=== PATIENT | female | born 1970 | race Caucasian/White ===

== ENCOUNTER 2024-07-24 06:26 | Emergency (ER) | payer OTHER ==
[~2024-07-24] VITALS: Ht 160 cm; Wt 85.0 kg
[2024-07-24 07:26] LABS: HEMATOCRIT. 37.4 % (36.0-48.0); HEMOGLOBIN. 12.8 g/dL (12.0-16.0); MEAN CORPUSCULAR HEMOGLOBIN 30.1 pg (28.0-32.0); MEAN CORPUSCULAR HGB CONC 34.1 g/dL (31.0-37.0); MEAN CORPUSCULAR VOLUME 88.1 fL (81.0-99.0); PLATELET 303 x1000/uL (130-400); RED BLOOD CELL COUNT 4.25 mill/uL (4.2-5.4); RED CELL DISTRIBUTION WIDTH 13.3 % (11.6-14.6); WHITE BLOOD COUNT 4.1 x1000/uL (4.5-11.0)
[2024-07-24 07:28] LABS: DIFFERENTIAL COMMENT 1
[2024-07-24] MEDS: DEXAMETHASONE 1MG TABLET PO ONE (07:45)
[2024-07-24 08:00] VITALS: PULSE 79; RESP 18; O2SAT 94
[2024-07-24] MEDS: ALBUTEROL (0.083%) 2.5MG/3ML NEB HHN SCH (08:00)
[2024-07-24] MEDS ORDERED: DEXAMETHASONE 4MG TABLET PO ONE (08:00)
[2024-07-24] MEDS: IPRATROPIUM BROMIDE (0.02%) 0.5MG/2.5ML NEB HHN STA (08:00)
[2024-07-24] MEDS: DEXAMETHASONE 4MG TABLET PO NR (08:08)
[2024-07-24] MEDS: ACETAMINOPHEN 325MG TABLET PO ONE (09:32)
[2024-07-24] MEDS: ONDANSETRON 4MG ODT PO ONE (09:40)
[2024-07-24 10:16] VITALS: BP 129/72; PULSE 93; RESP 20; TEMP 36.6; O2SAT 92
[2024-07-24 11:17] LABS: PLATELET ESTIMATE NORMAL
== END 2024-07-24 10:28 | disposition home or self-care (01) ==
LOC: ER 06:26
DX: J40 Bronchitis, not specified as acute or chronic (principal); B34.9 Viral infection, unspecified; Z90.710 Acquired absence of both cervix and uterus
CPT/HCPCS: 85025; 36415; 71045; 93005; 94644; 99291; J8540; Q0162; Z7610 ×2; 94070; 94640; 94664; 98960